=== PATIENT | male | born 2005 | race African-American/Black ===

== ENCOUNTER 2025-04-07 18:44 | Emergency (ER) | payer MEDICAID ==
[~2025-04-07] VITALS: Ht 185.4 cm; Wt 88.9 kg
--- NOTE | 2025-04-07 19:05 | Physician Documentation ---
History of Present Illness ~ Chief Complaint: Asthma Stated Complaint: ASTHMA Time Seen by MD: 19:03 HPI Patient presents to the emergency room with several week history of asthma exacerbation. Patient reports symptoms are worse at night. No indoor pet exposure and no smoke exposure. He says he simply ran out of his albuterol. No fevers. Medication Reconciliation Allergies: Coded Allergies: No Known Allergies (Unverified , 04/07/25) Scheduled Albuterol Sulfate (Ventolin Hfa), 2 PUFFS IH 5XD Prednisone* (Prednisone*), 1 TAB PO DAILY Review of Systems ROS All review of systems negative except as per HPI Physical Exam Vital Signs: Temperature: 96.3, Source: Temporal, Heart Rate: 79, Respiratory Rate: 21, BP: 146/73, Pulse Oximetry: 94, Weight: 88.900 Physical Exam General: Patient is awake, alert, oriented x4 in no acute distress and well appearing.~ Head: Normocephalic and atraumatic. Eyes: Conjunctival normal. EOMI. PERRL. ENT: Mucous membranes moist. Neck: Supple, trachea is midline. Chest: Bilateral diffuse expiratory wheezing noted.. There is no accessory muscle use or retractions. Cardiac: RRR without murmurs, gallops, or rubs. Progress Results/Orders Results/Orders Orders - BRANDO RESENDEZ MD Svn Treatment (04/07/25 19:04) Completed Orders - BRANDO RESENDEZ MD Ipratropium/Albuterol Nebule (Ipratrop/A (04/07/25 19:05) Prednisone Tablet (Prednisone Tablet) (04/07/25 19:20) Medications Received in ER Medications (Trade) Dose Ordered Sig/Lara Route PRN Reason Start Time Stop Time Status Last Admin Dose Admin (ipratrop/ albuterol 0.5-3(2.5) MG/3ml nebule) 3 ml ONCE ONCE NEB 04/07/25 19:05 04/07/25 19:06 DC 04/07/25 19:29 3 ML Vital Signs 04/07/25 04/07/25 04/07/25 04/07/25 18:55 19:05 19:31 19:36 Temp 96.3 Pulse 79 78 71 Resp 21 18 18 18 B/P (MAP) 146/73 Pulse Ox 94 97 98 O2 Delivery Room Air* Room Air* O2 Flow Rate 0 0 FiO2 21 21 Medical Decision Making Findings Patient presents to the emergency room with asthma exacerbation as per HPI. Differentials include but are not limited to and has been exacerbation, viral syndrome, CHF, pneumonia, pulmonary embolism. Patient responded well to russ tment in the emergency room and given course in the emergency room we will treat him for asthma exacerbation. ER precautions discussed. Departure Disposition: HOME / SELF CARE / HOMELESS Impression: Primary Impression: Acute asthma Condition: Improved Discharge Instructions: Asthma, Adult, [id number] Referrals: NO PRIMARY CARE PROVIDER (PCP) Prescriptions Albuterol Sulfate (Ventolin Hfa) 90 Mcg Hfa.aer.ad 2 PUFFS IH 5XD, #1 EACH Prov: BRANDO RESENDEZ MD 04/07/25 Prednisone* (Prednisone*) 20 Mg Tablet 1 TAB PO DAILY for 5 Days, #5 TAB Prov: BRANDO RESENDEZ MD 04/07/25 Education Educated: Patient Educated regarding: diagnosis, treatment, need for follow up Signature Scribe Signature: No scribe Attestation: The note accurately reflects work and decisions made by me.Brando Resendez MD 04/07/25 19:18 BRANDO RESENDEZ MD Apr 07, 2025 19:05
[2025-04-07] MEDS ORDERED: PRED20TA PO (19:18)
[2025-04-07] MEDS ORDERED: ALBU18HF2 IH (19:18)
[2025-04-07] MEDS: ipratropium/albuterol 3ml nebule NEB ONE (19:29)
[2025-04-07 19:31] VITALS: PULSE 78; RESP 18; O2SAT 97
[2025-04-07 19:36] VITALS: PULSE 71; RESP 18; O2SAT 98
[2025-04-07 19:51] VITALS: BP 126/82; PULSE 82; RESP 16; TEMP 97.5; O2SAT 98
== END 2025-04-07 19:53 | disposition home or self-care (01) ==
LOC: ER 18:47
DX: J45.909 Unspecified asthma, uncomplicated (principal)
CPT/HCPCS: 94640; 99283; J7512; 94760

== ENCOUNTER 2025-05-01 12:05 | Emergency (ER) | payer MEDICAID ==
[~2025-05-01] VITALS: Ht 182.9 cm; Wt 114.4 kg
[~2025-05-01 12:05] MED LIST: ALBU18HF2 IH
[2025-05-01 12:37] VITALS: BP 145/76; PULSE 98; RESP 18; O2SAT 98
--- NOTE | 2025-05-01 15:18 | RADIOLOGY REPORT ---
[facility] EXAMINATION: DI UNI RIBS WITH PA CHEST INDICATION: left side pain COMPARISON: None TECHNIQUE: Frontal view of the chest and 6 views of the left ribs history FINDINGS: No focal consolidation, pleural effusion or significant pneumothorax. Normal cardiomediastinal silhouette. No displaced left rib fracture. IMPRESSION: No acute cardiopulmonary disease. No displaced left rib fracture.
[2025-05-01 15:22] LABS: LEUKOCYTE ESTERASE ,URINE TRACE (Neg); NITRITES, URINE NEGATIVE (Neg); OCCULT BLOOD,URINE NEGATIVE (Neg)
[2025-05-01 15:28] LABS: UA COLLECTION TYPE CLN CATCH MIDSTREAM
[2025-05-01] MEDS ORDERED: IBUP-1984 PO (15:28)
[2025-05-01] MEDS ORDERED: TIZA4TAB11 PO (15:28)
--- NOTE | 2025-05-01 15:28 | Physician Documentation ---
History of Present Illness ~ General Chief Complaint: Flank Pain Stated Complaint: SIDE PAIN Time Seen by MD: 14:14 History of Present Illness Initial Comments 19-year-old male who presents to the emergency department with left lateral chest wall discomfort without known reported injury. Pain is reproducible with twisting and turning and bending. No prior history of the same. No reported rash or fever. Pain is located to the left lateral chest wall between ribs 789 and 10 without evidence of flail segments, contusions bruising or subcutaneous air. No reported respiratory or urinary symptoms. Medication Reconciliation Allergies: Coded Allergies: No Known Allergies (Unverified , 05/01/25) Scheduled Albuterol Sulfate (Ventolin Hfa), 2 PUFFS IH 5XD Ibuprofen* (Motrin*), 800 MG PO Q8H Scheduled PRN Tizanidine Hcl (Zanaflex), 1 TAB PO Q8H PRN for pain Review of Systems All Other Systems at this time: Reviewed and Negative Musculoskeletal: Reports: muscle pain Physical Exam Physical Exam Vital Signs: Temperature: 98.7, Heart Rate: 98, Respiratory Rate: 18, BP: 145/76, Pulse Oximetry: 98, Weight: 114.400 General Appearance: alert, WD/WN, no apparent distress Head: normal inspection Face: normal inspection Pupils/EOM/Fundus: PERRLA Respiratory: lungs clear Cardiovascular: normal peripheral pulses, friction rub Cardiovascular Chest wall atraumatic in appearance without flail sec, paradoxical chest wall motion or contusions. Back: normal inspection, no CVA tenderness, no vertebral tenderness Extremities: normal range of motion Neurologic: oriented x4 Motor / Sensory: no motor deficit, no sensory deficit Psychiatric: normal mood/affect Skin: normal color, warm/dry Progress Results/Orders Results/Orders Orders - KHUSHBOO STONE PAC Uni Ribs With Pa Chest (05/01/25 ) Cult Urine + [place] [address] (05/01/25 15:31) Completed Orders - KHUSHBOO STONE PAC Uni Ribs With Pa Chest (05/01/25 ) Ua W/Microscopic, Cult If Ind (05/01/25 14:51) Vital Signs 05/01/25 12:37 Temp 98.7 Pulse 98 Resp 18 B/P (MAP) 145/76 Pulse Ox 98 Laboratory Tests Test 05/01/25 14:51 Urine Specimen Description Cln catch midstream Urine Color Yellow Urine Clarity Clear Urine pH 6.0 Urine Specific [place] 1.020 Urine Protein Negative Urine Glucose (UA) Negative Urine Ketones Negative Urine Occult Blood Negative Urine Nitrite Negative Urine Bilirubin Negative Urine Urobilinogen 0.2 Urine Leukocyte Esterase Trace H Urine RBC None seen Urine WBC 0-4 Urine Squamous Epithelial Cells Few Urine Bacteria Few Urine Mucus None seen Urine Culture Indicated Indicated Volume Urine Centrifuged 10 ml Urine Comment Medical Decision Making Differential Diagnosis 19-year-old male with a reassuring examination today without clinical suspicion for pneumothorax, additional differentials include shingles, costochondritis, pleural effusion, pulmonary contusion,other unforseen thoracic wall injuries or pleural injuries. Chest x-ray imaging obtained along with rib series both reassuring. We will trial anti-inflammatory and muscle waxing and therapy. Patient will follow up with primary care physician and return to the emergency department if symptoms worsen. Safely discharged from the emergency department. Departure Disposition: HOME / SELF CARE / HOMELESS Impression: Primary Impression: Left-sided chest wall pain Additional Impression: Rib contusion Qualified Codes: S29.8XXA - Other specified injuries of thorax, initial encounter Condition: Stable Discharge Instructions: Rib Contusion Additional Instructions: Your x-ray imaging today is reassuring. Please trial medications as discussed and make follow up appointment with the primary care physician and return to the emergency department [facility] as needed. Referrals: NO PRIMARY CARE PROVIDER (PCP) Prescriptions Tizanidine Hcl (ZANAFLEX) 4 Mg Tablet 1 TAB PO Q8H PRN for pain for 10 Days, #30 TAB 0 Refills Prov: KHUSHBOO STONE PAC 05/01/25 Ibuprofen* (Motrin*) 400 Mg Tablet 800 MG PO Q8H for 10 Days, #30 TAB Prov: KHUSHBOO STONE 05/01/25 Education Educated: Patient Educated regarding: diagnosis, treatment Signature Scribe Signature: . Attestation: . KHUSHBOO STONE PAC May 01, 2025 15:28
[2025-05-01 15:31] LABS: MUCUS STRANDS NONE SEEN /LPF (Neg); SQUAMOUS EPITHELIAL CELL,UR FEW /LPF (FEW)
[2025-05-01 15:51] VITALS: TEMP 98.7
== END 2025-05-01 15:45 | disposition home or self-care (01) ==
LOC: ER 12:05
DX: S20.212A Contusion of left front wall of thorax, initial encounter (principal); Z79.899 Other long term (current) drug therapy; X58.XXXA Exposure to other specified factors, initial encounter; Y93.89 Activity, other specified; Y92.89 Other specified places as the place of occurrence of the external cause; Y99.8 Other external cause status
CPT/HCPCS: 71101; 81001; 87088; 99284

== ENCOUNTER 2025-06-26 13:41 | Emergency (ER) | payer MEDICAID ==
[~2025-06-26] VITALS: Ht 243.8 cm; Wt 106.7 kg
[~2025-06-26 13:41] MED LIST changes: +TIZA4TAB11 PO
[2025-06-26 14:36] VITALS: TEMP 98.8
[2025-06-26] MEDS: albuterol 2.5 MG/3 ML nebule NEB ONE (14:43)
[2025-06-26 14:44] VITALS: PULSE 85; RESP 20; O2SAT 95
[2025-06-26 14:50] VITALS: PULSE 89; RESP 16; O2SAT 99
--- NOTE | 2025-06-26 14:57 | Physician Documentation ---
History of Present Illness ~ Chief Complaint: Shortness of Breath Stated Complaint: SOB Time Seen by MD: 14:04 Mode of Arrival: POV HPI 19-year-old male with history of asthma has been increasingly short of breath where his albuterol inhaler has not been helping for the past couple of days. No other associated symptoms including cough upper respiratory infection or chest pain. Medication Reconciliation Allergies: Coded Allergies: No Known Allergies (Unverified , 05/01/25) Scheduled Albuterol Sulfate (Ventolin Hfa), 2 PUFFS IH 5XD Montelukast Sodium (Montelukast Sodium), 1 TAB PO DAILY Prednisone (Prednisone), 0 PO DAILY Scheduled PRN Tizanidine Hcl (Zanaflex), 1 TAB PO Q8H PRN for pain Past Medical History Past Medical History: *PULMONARY*, Asthma Past Surgical History: noncontributory Lives with: Family Lives In: Home Occupation: employed Review of Systems All Other Systems at this time: Reviewed and Negative Cardiovascular: Reports: see HPI Physical Exam Vital Signs: RN Vital Signs have been reviewed: Yes, Temperature: 98.8, Source: Oral, Heart Rate: 89, Respiratory Rate: 16, BP: 148/84, Pulse Oximetry: 99, Weight: 106.700 Oxygen Flow Rate: 0 Physical Exam General: Alert, no apparent distress. HEENT: PERRL, EOMI, no injection, moist mucous membranes. Neck: Full range of motion. Respiratory: Wheezing throughout posterior and anteriorly no respiratory distress noted in speaking in full sentences Chest: No accessory muscle use. Cardiovascular: Regular rate and rhythm, no murmurs. Extremities: Normal range of motion, no deformity. Neurologic: Oriented x4. Psychiatric: Normal mood and affect. Skin: Normal color, warm and dry. No edema, no ecchymosis. Progress Results/Orders Results/Orders Orders - ILEANA MOODY NP Svn Treatment (06/26/25 14:16) Chest,Single View (06/26/25 15:03) Completed Orders - ILEANA MOODY NP Albuterol 2.5mg/3ml Nebule (Proventil 2. (06/26/25 14:20) Chest,Single View (06/26/25 15:03) Medications Received in ER Medications (Trade) Dose Ordered Sig/Lara Route PRN Reason Start Time Stop Time Status Last Admin Dose Admin (Proventil 2.5 MG/3ML nebule) 2.5 mg ONCE ONCE NEB 06/26/25 14:20 06/26/25 14:21 DC 06/26/25 14:43 2.5 MG Vital Signs 06/26/25 06/26/25 06/26/25 06/26/25 14:02 14:36 14:36 14:44 Temp 98.8 98.8 Pulse 66 88 85 Resp 18 18 18 20 B/P (MAP) 127/81 148/84 (105) Pulse Ox 100 96 95 O2 Delivery Room Air* O2 Flow Rate 0 0 0 FiO2 21 06/26/25 14:50 Pulse 89 Resp 16 Pulse Ox 99 O2 Delivery Room Air* O2 Flow Rate 0 FiO2 21 Heart Score: Heart Score Response (Comments) Value History N/A 0 Total 0 Medical Decision Making Additional information obtaine: N/A Findings Wheezing throughout of respiratory treatment has been ordered with moderate improvement of wheezing. We will prescribe prednisone and maintain albuterol inhaler. Likely asthma exacerbation x-ray ordered to evaluate for infective processes. Heart Score: 0 Differential Dx:Considerations: Include: anxiety, asthma, bronchitis, upper resp. infection Departure Time of Disposition: 15:14 Disposition: 01 HOME / SELF CARE / HOMELESS Impression: Primary Impression: Acute asthma Condition: Stable Discharge Instructions: Asthma Prevention-Brief Additional Instructions: Take Singulair/montelukast as it is an allergy medication but it is another treatment for asthma to help with exacerbations. Take prednisone as prescribed and follow up with primary care Referrals: NO PRIMARY CARE PROVIDER (PCP) Prescriptions Montelukast Sodium (MONTELUKAST SODIUM) 10 Mg Tablet 1 TAB PO DAILY for 30 Days, #30 TAB 0 Refills Prov: ILEANA MOODY NP 06/26/25 Prednisone (Prednisone) 10 Mg Tablet 0 PO DAILY, #42 TAB Take 4 tabs daily x4 days, then 3 daily x4 days 2 daily x4 days 1 daily x4 days 1/2 daily x4 days then STOP Prov: ILEANA MOODY NP 06/26/25 Education Educated: Patient Educated regarding: diagnosis, treatment, need for follow up Signature Scribe Signature: No scribe Attestation: The note accurately reflects work and decisions made by me.Ileana KNUTSON 06/26/25 14:59 ILEANA MOODY S[employer] B[employer] BUILDER Jun 26, 2025 14:57
[2025-06-26] MEDS ORDERED: MONT-40 PO (14:59)
[2025-06-26] MEDS ORDERED: PRED10TA23 PO (14:59)
--- NOTE | 2025-06-26 15:17 | RADIOLOGY REPORT ---
DI CHEST,SINGLE VIEW, HISTORY: Shortness of breath COMPARISON: DI UNI RIBS WITH PA CHEST on DOS: 05/01/25 DI UNI RIBS WITH PA CHEST on DOS: 05/01/25 TECHNICAL DATA: 1 view of the chest was obtained. FINDINGS: Lines and tubes: None Cardiomediastinal silhouette: normal Pulmonary vasculature: normal Lung expansion: normal Lung airspace: normal Lung interstitium: normal Pleura: normal Pneumothorax: no Bones: Unremarkable Other: no IMPRESSION: No acute intrathoracic abnormality.
[2025-06-26 16:05] VITALS: BP 141/88; PULSE 90; RESP 13; O2SAT 100
[2025-06-27] MEDS ORDERED: BUDE10.22 INH (10:56)
--- NOTE | 2025-06-27 11:35 | ELECTROCARDIOGRAPH REPORT ---
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 EDILMA Peoples Measurements Intervals [place] Rate: 87 P: 75 SC: 166 QRS: 64 QRSD: 96 T: 55 QT: 312 QTc: 376 Interpretive Statements Sinus rhythm RSR' in V1 or V2, right VCD or RVH Electronically Signed On 06-27-2025 12:56:[address] EDILMA Peoples Please click the below link to view image of tracing.
== END 2025-06-26 16:08 | disposition home or self-care (01) ==
LOC: ER 13:42
DX: J45.909 Unspecified asthma, uncomplicated (principal); Z79.899 Other long term (current) drug therapy
CPT/HCPCS: 71045; 93005; 94640; 94760; 99283

== ENCOUNTER 2025-06-27 09:54 | Emergency (ER) | payer MEDICAID ==
[~2025-06-27] VITALS: Ht 182.9 cm; Wt 108.4 kg
[~2025-06-27 09:54] MED LIST changes: +MONT-40 PO; +PRED10TA23 PO
[2025-06-27 10:03] VITALS: TEMP 97.7
[2025-06-27] MEDS ORDERED: BUDE10.22 INH (10:56)
--- NOTE | 2025-06-27 10:57 | Physician Documentation ---
History of Present Illness ~ Chief Complaint: Asthma Stated Complaint: SOB Time Seen by MD: 10:36 HPI Year old male with a lifelong history of asthma presents to the ED complaining of shortness of breath and wheezing. He was seen here yesterday but was unable to pick up worker his medications because he states that they were not ready this morning. Noted to have a way of getting to the pharmacy. States he had to use the scooter to get to the emergency room Additionally he states he does have albuterol at home but does not take a maintenance inhaler Day of Onset: Jun 27, 2025 Medication Reconciliation Allergies: Coded Allergies: No Known Allergies (Unverified , 05/01/25) Scheduled Albuterol Sulfate (Ventolin Hfa), 2 PUFFS IH 5XD Budesonide/Formoterol Fumarate (Symbicort 80-4.5 Mcg Inhaler), 2 PUFFS INH Q12H Montelukast Sodium (Montelukast Sodium), 1 TAB PO DAILY Prednisone (Prednisone), 0 PO DAILY Scheduled PRN Tizanidine Hcl (Zanaflex), 1 TAB PO Q8H PRN for pain Past Medical History Past Medical History: *PULMONARY*, Asthma Past Surgical History: noncontributory Lives with: Family Lives In: Home Occupation: employed Review of Systems All Other Systems at this time: Reviewed and Negative ROS As stated above in the HPI, otherwise all systems are reviewed and negative. Physical Exam Vital Signs: Temperature: 97.7, Heart Rate: 77, Respiratory Rate: 19, BP: 143/69, Pulse Oximetry: 97, Weight: 108.400 Oxygen Flow Rate: 0 Physical Exam General: Alert, no apparent distress. HEENT: PERRL, EOMI, no injection, moist mucous membranes. Neck: Full range of motion. Respiratory: Coarse lung sounds with wheezing in both lung hyde Chest: No accessory muscle use. Cardiovascular: Regular rate and rhythm, no murmurs. Neurologic: Oriented x4. Psychiatric: Normal mood and affect. Skin: Normal color, warm and dry. No edema, no ecchymosis. Progress Results/Orders Results/Orders Orders - RAÚL KRAMER NP Svn Treatment (06/27/25 ) Completed Orders - RAÚL KRAMER [employer] Ipratropium/Albuterol Nebule (Ipratrop/A (06/27/25 11:00) Medications Received in ER Medications (Trade) Dose Ordered Sig/Lara Route PRN Reason Start Time Stop Time Status Last Admin Dose Admin (ipratrop/ albuterol 0.5-3(2.5) MG/3ml nebule) 3 ml ONCE ONCE NEB 06/27/25 11:00 06/27/25 11:10 DC 06/27/25 11:14 3 ML Vital Signs 06/27/25 06/27/25 06/27/25 06/27/25 10:03 11:14 11:18 11:24 Temp 97.7 Pulse 77 78 74 80 Resp 19 17 20 20 B/P (MAP) 143/69 Pulse Ox 97 93 95 100 O2 Delivery Room Air* Room Air* O2 Flow Rate 0 0 0 FiO2 21 21 06/27/25 11:32 Pulse 84 Resp 18 B/P (MAP) 137/86 Pulse Ox 96 Medical Decision Making Additional information obtaine: old records, N/A Findings Gave this patient a breathing treatment in in addition to the previously prescribed medications I am going to add a maintenance inhaler for ongoing treatment Heart Score: 1 Differential Dx:Considerations: Include: anxiety, asthma, bronchitis, cardiogenic shock, CHF, COPD, dysrhythmia, hypertension, accelerated, hypertension, essential, hypertension, malignant, hyperventilation, hyp onatremia, myocardial infarction, panic attack, pneumonia, pneumonitis, pneumothorax, PSVT, pulmonary embolism, respiratory distress, respiratory failure, sinusitis, upper resp. infection, other Departure Disposition: 01 HOME / SELF CARE / HOMELESS Impression: Primary Impression: Asthma Condition: Improved Discharge Instructions: Asthma, Adult, [id number] Referrals: UNKNOWN,UNKNOWN (PCP) Prescriptions Budesonide/Formoterol Fumarate (Symbicort 80-4.5 Mcg Inhaler) 80 Mcg-4.5 Mcg/Actuation Hfa.aer.ad 2 PUFFS INH Q12H for 30 Days, #2 INHALER 0 Refills Prov: RAÚL KRAMER NP 06/27/25 Education Educated: Patient Educated regarding: diagnosis Signature Scribe Signature: y Attestation: Scribed for Raúl Kramer [employer] Specialist by Raúl Moran NP . 06/27/25 10:57 RAÚL KRAMER NP Jun 27, 2025 10:57
[2025-06-27] MEDS: ipratropium/albuterol 3ml nebule NEB ONE (11:14)
[2025-06-27 11:18] VITALS: PULSE 74; RESP 20; O2SAT 95
[2025-06-27 11:24] VITALS: PULSE 80; RESP 20; O2SAT 100
[2025-06-27 11:32] VITALS: BP 137/86; PULSE 84; RESP 18; O2SAT 96
== END 2025-06-27 11:34 | disposition home or self-care (01) ==
LOC: ER 09:55
DX: J45.909 Unspecified asthma, uncomplicated (principal)
CPT/HCPCS: 94640; 94760; 99283